=== PATIENT | male | born 1940 | race Caucasian/White ===

== ENCOUNTER 2019-05-20 17:04 | Emergency (ER) | payer OTHER ==
[~2019-05-20] VITALS: Ht 172.7 cm; Wt 63.5 kg
[2019-05-20] MEDS ORDERED: AMLO10 PO (18:00)
[2019-05-20] MEDS ORDERED: HYDCHL25 PO (18:01)
[2019-05-20] MEDS ORDERED: SIMV80 (18:01)
[2019-05-20] MEDS ORDERED: HYDR1TAB94 PO (19:34)
== END 2019-05-20 20:03 | disposition home or self-care (01) ==
LOC: ER 17:04
DX: S22.41XA Multiple fractures of ribs, right side, initial encounter for closed fracture (principal); S01.111A Laceration without foreign body of right eyelid and periocular area, initial encounter; I10 Essential (primary) hypertension; F17.210 Nicotine dependence, cigarettes, uncomplicated; V86.59XA Driver of other special all-terrain or other off-road motor vehicle injured in nontraffic accident, initial encounter
CPT/HCPCS: 12011; 70200; 71101; 90471; 90714; 99283-25; A9270

== ENCOUNTER 2020-12-05 19:06 | Emergency (ER) | payer OTHER ==
[~2020-12-05] VITALS: Ht 172.7 cm; Wt 63.5 kg
[~2020-12-05 19:06] MED LIST: AMLO10 PO; Cipro500 MG PO; HYDCHL25 PO; HYDR1TAB94 PO; SIMV80
[2020-12-05 20:13] LABS: BASOPHILS ABSOLUTE AUTO 0.06 K/mm3 (0.00-0.23); BASOPHILS PERCENT AUTO 0 % (0-2); EOSINOPHILS ABSOLUTE AUTO 0.09 K/mm3 (0.00-0.68); EOSINOPHILS PERCENT AUTO 1 % (0-6); Hematocrit 41.2 % (37.0-53.0); Hemoglobin 14.3 g/dL (13.5-17.5); IMMATURE GRAN ABSOLUTE AUTO 0.14 K/mm3 (0.00-0.10); IMMATURE GRAN PERCENT AUTO 1 % (0-1); LYMPHOCYTES ABSOLUTE AUTO 1.09 K/mm3 (0.84-5.20); LYMPHOCYTES PERCENT AUTO 6 % (21-46); MONOCYTES ABSOLUTE AUTO 1.53 K/mm3 (0.16-1.47); MONOCYTES PERCENT AUTO 8 % (4-13); Mean Corpuscular HGB 31.9 pg (26.0-34.0); Mean Corpuscular HGB Conc 34.7 g/dL (31.5-36.5); Mean Corpuscular Volume 92 fL (80-100); Mean Platelet Volume 10.1 fL (9.1-12.4); NEUTROPHILS ABSOLUTE AUTO 15.82 K/mm3 (1.96-9.15); NEUTROPHILS PERCENT AUTO 85 % (41-73); Platelet Count 203 K/mm3 (150-400); RDW Coefficient Variation 13.1 % (11.7-14.2); RDW Standard Deviation 43.8 fL (35.1-46.3); Red Blood Cell Count 4.48 M/mm3 (4.30-5.90); White Blood Cell Count 18.73 K/mm3 (4.00-11.30)
[2020-12-05 21:36] LABS: Troponin I <0.015 ng/mL (0.000-0.040)
[2020-12-05 21:37] LABS: Anion Gap 4 mmol/L (6-16); Blood Urea Nitrogen 16 mg/dL (8-24); Bun/Creatinine Ratio 17.5 (12.0-20.0); CO2, Blood 29 mmol/L (21-32); Calcium, Blood 10.5 mg/dL (8.5-10.1); Chloride, Blood 98 mmol/L (98-108); Creatinine, Blood 0.92 mg/dL (0.60-1.20); Glomerular Filtration Rate >60 (60-); Glucose, Blood 117 mg/dL (70-99); Sodium, Blood 131 mmol/L (136-145)
== END 2020-12-05 22:03 | disposition home or self-care (01) ==
LOC: ER 19:06
PROVIDERS: Student in an Organized Health Care Education/Training Program
DX: R55 Syncope and collapse (principal); I44.7 Left bundle-branch block, unspecified; I10 Essential (primary) hypertension; E78.5 Hyperlipidemia, unspecified; Z88.2 Allergy status to sulfonamides; F17.210 Nicotine dependence, cigarettes, uncomplicated
CPT/HCPCS: 80048; 84484; 85025; 93005; 93010; 99284-25

== ENCOUNTER 2023-01-18 13:49 | Inpatient (IN) | payer OTHER ==
[~2023-01-18] VITALS: Ht 172.7 cm; Wt 56.0 kg
[2023-01-18] MEDS ORDERED: Aspir 8181 MG PO (14:21)
[2023-01-18] MEDS ORDERED: VITAMIN D31000 UNI1 PO (14:22)
[2023-01-18] MEDS ORDERED: Tessalon200 MG PO (14:22)
[2023-01-18] MEDS ORDERED: CIPR250 PO ×2 (14:23→21:29)
[2023-01-18] MEDS ORDERED: ROSU10TA PO (14:24)
[2023-01-18] MEDS ORDERED: JARDIANCE10 MG PO (14:24)
[2023-01-18] MEDS ORDERED: ENTRESTO 24 MG1 EACH PO (14:24)
[2023-01-18] MEDS ORDERED: TAMS.4ER PO (14:25)
[2023-01-18] MEDS ORDERED: SENNA LAXATIVE8.6 MG PO (14:25)
[2023-01-18] MEDS ORDERED: SERT100 PO (14:25)
[2023-01-18 14:27] LABS: Hematocrit 35.5 % (37.0-53.0); Hemoglobin 12.3 g/dL (13.5-17.5); Mean Corpuscular HGB 30.8 pg (26.0-34.0); Mean Corpuscular HGB Conc 34.6 g/dL (31.5-36.5); Mean Corpuscular Volume 89 fL (80-100); Platelet Count 380 K/mm3 (150-400); RDW Coefficient Variation 13.1 % (11.7-14.2); White Blood Cell Count 28.31 K/mm3 (4.00-11.30)
[2023-01-18 14:41] LABS: Albumin, Blood 1.9 g/dL (3.4-5.0); Albumin/Globulin Ratio 0.5 (0.8-1.8); Bilirubin, Total 0.5 mg/dL (0.1-1.0); Bun/Creatinine Ratio 29.2 (12.0-20.0); Calcium, Blood 10.8 mg/dL (8.5-10.1); Creatinine, Blood 0.86 mg/dL (0.60-1.20); Globulin, Blood 4.2 g/dL (2.2-4.0); Potassium, Blood 3.6 mmol/L (3.5-5.5); Total Protein, Blood 6.1 g/dL (6.4-8.2)
[2023-01-18 14:57] LABS: International Normalized Ratio 1.14; Prothrombin Time Results 11.9 Sec (9.7-11.5)
[2023-01-18 15:10] LABS: BAND PERCENT MAN 29 % (0-8); BASOPHILS PERCENT MAN 0 % (0-2); EOSINOPHILS PERCENT MAN 0 % (0-6); LYMPHOCYTES ABSOLUTE MAN 0.84 K/mm3 (0.84-5.20); LYMPHOCYTES PERCENT MAN 3 % (21-46); MONOCYTES ABSOLUTE MAN 1.41 K/mm3 (0.16-1.47); MONOCYTES PERCENT MAN 5 % (4-13); NEUTROPHILS ABSOLUTE MAN 26.04 K/mm3 (1.96-9.15); SEG NEUTROPHILS PERCENT MAN 63 % (41-73); TOTAL CELLS COUNTED 100
[2023-01-18 18:36] VITALS: BP 124/70
[2023-01-18 19:11] VITALS: BP 120/84
[2023-01-18] MEDS ORDERED: ALBU90OI INH (21:03)
[2023-01-18] MEDS ORDERED: DEXTROMETHORPHAN-GUA PO (21:31)
[2023-01-19 04:27] VITALS: BP 138/73
[2023-01-19 04:33] LABS: BASOPHILS ABSOLUTE AUTO 0.05 K/mm3 (0.00-0.23); BASOPHILS PERCENT AUTO 0 % (0-2); EOSINOPHILS PERCENT AUTO 0 % (0-6); Hematocrit 33.3 % (37.0-53.0); Hemoglobin 11.4 g/dL (13.5-17.5); IMMATURE GRAN ABSOLUTE AUTO 0.19 K/mm3 (0.00-0.10); IMMATURE GRAN PERCENT AUTO 1 % (0-1); LYMPHOCYTES ABSOLUTE AUTO 1.13 K/mm3 (0.84-5.20); LYMPHOCYTES PERCENT AUTO 5 % (21-46); MONOCYTES PERCENT AUTO 8 % (4-13); Mean Corpuscular HGB 30.6 pg (26.0-34.0); Mean Corpuscular HGB Conc 34.2 g/dL (31.5-36.5); Mean Corpuscular Volume 90 fL (80-100); Mean Platelet Volume 9.9 fL (9.1-12.4); NEUTROPHILS ABSOLUTE AUTO 21.31 K/mm3 (1.96-9.15); NEUTROPHILS PERCENT AUTO 86 % (41-73); Platelet Count 337 K/mm3 (150-400); RDW Coefficient Variation 13.2 % (11.7-14.2); RDW Standard Deviation 43.7 fL (35.1-46.3); Red Blood Cell Count 3.72 M/mm3 (4.30-5.90); White Blood Cell Count 24.78 K/mm3 (4.00-11.30)
[2023-01-19 04:34] LABS: Base Excess Venous 3.7 mmol/L; Bicarbonate Venous 27.6 mmol/L (24.0-30.0); PCO2 Venous 36.7 mmHg (38-42); pH Blood Venous 7.48 (7.34-7.37)
[2023-01-19 04:56] LABS: Albumin, Blood 1.8 g/dL (3.4-5.0); Anion Gap 5 mmol/L (6-16); Blood Urea Nitrogen 26 mg/dL (8-24); Bun/Creatinine Ratio 29.4 (12.0-20.0); CO2, Blood 27 mmol/L (21-32); Calcium, Blood 10.8 mg/dL (8.5-10.1); Chloride, Blood 102 mmol/L (98-108); Creatinine, Blood 0.88 mg/dL (0.60-1.20); Glomerular Filtration Rate 86 (60-); Glucose, Blood 107 mg/dL (70-99); Phosphorus, Blood 2.6 mg/dL (2.5-4.9); Potassium, Blood 3.4 mmol/L (3.5-5.5); Sodium, Blood 134 mmol/L (136-145)
[2023-01-19 07:20] VITALS: BP 131/73
[2023-01-19 15:40] VITALS: BP 133/81
[2023-01-19 19:46] VITALS: BP 109/78
[2023-01-20 02:38] VITALS: BP 152/89
[2023-01-20 04:52] LABS: Hematocrit 36.1 % (37.0-53.0); Hemoglobin 12.1 g/dL (13.5-17.5); Mean Corpuscular HGB 30.3 pg (26.0-34.0); Mean Corpuscular HGB Conc 33.5 g/dL (31.5-36.5); Mean Corpuscular Volume 90 fL (80-100); Platelet Count 376 K/mm3 (150-400); RDW Coefficient Variation 13.3 % (11.7-14.2); RDW Standard Deviation 44.5 fL (35.1-46.3); White Blood Cell Count 23.03 K/mm3 (4.00-11.30)
[2023-01-20 05:12] LABS: Bun/Creatinine Ratio 32.9 (12.0-20.0); Calcium, Blood 10.9 mg/dL (8.5-10.1); Creatinine, Blood 0.79 mg/dL (0.60-1.20)
[2023-01-20 07:38] VITALS: BP 142/79
[2023-01-20 14:46] LABS: Automated BF RBC Count 0.011 M/mm3 (0-0); Automated BF WBC Count 4.037 K/mm3 (0-999)
[2023-01-20 14:52] LABS: Body Fluid WBC Count 4037 /mm3 (0-999); RBC Count, Body Fluid 11000 /mm3 (0-0)
[2023-01-20 14:53] LABS: Protein, Body Fluid 4.2 g/dL
[2023-01-20 14:56] LABS: Lactate Dehydrogenase, Body Fl 907 U/L
[2023-01-20 15:00] VITALS: BP 131/79
[2023-01-20 16:10] LABS: Total Cell Count, Body Fluid 100
[2023-01-20 16:11] LABS: Appearance, Body Fluid Cloudy (Clear); Color, Body Fluid Amber (None-Yellow)
[2023-01-20 19:46] VITALS: BP 149/73
[2023-01-21 02:50] VITALS: BP 149/120
[2023-01-21 02:53] VITALS: BP 149/89
[2023-01-21 05:06] LABS: BASOPHILS ABSOLUTE AUTO 0.05 K/mm3 (0.00-0.23); BASOPHILS PERCENT AUTO 0 % (0-2); EOSINOPHILS ABSOLUTE AUTO 0.17 K/mm3 (0.00-0.68); EOSINOPHILS PERCENT AUTO 1 % (0-6); Hematocrit 34.4 % (37.0-53.0); Hemoglobin 11.5 g/dL (13.5-17.5); IMMATURE GRAN ABSOLUTE AUTO 0.19 K/mm3 (0.00-0.10); IMMATURE GRAN PERCENT AUTO 1 % (0-1); LYMPHOCYTES ABSOLUTE AUTO 1.06 K/mm3 (0.84-5.20); LYMPHOCYTES PERCENT AUTO 4 % (21-46); MONOCYTES ABSOLUTE AUTO 1.55 K/mm3 (0.16-1.47); MONOCYTES PERCENT AUTO 6 % (4-13); Mean Corpuscular HGB 30.3 pg (26.0-34.0); Mean Corpuscular HGB Conc 33.4 g/dL (31.5-36.5); Mean Corpuscular Volume 91 fL (80-100); Mean Platelet Volume 9.9 fL (9.1-12.4); NEUTROPHILS ABSOLUTE AUTO 22.59 K/mm3 (1.96-9.15); NEUTROPHILS PERCENT AUTO 88 % (41-73); Platelet Count 371 K/mm3 (150-400); RDW Coefficient Variation 13.2 % (11.7-14.2); RDW Standard Deviation 44.7 fL (35.1-46.3); Red Blood Cell Count 3.79 M/mm3 (4.30-5.90); White Blood Cell Count 25.61 K/mm3 (4.00-11.30)
[2023-01-21 05:21] LABS: Albumin, Blood 1.7 g/dL (3.4-5.0); Anion Gap 6 mmol/L (6-16); Blood Urea Nitrogen 27 mg/dL (8-24); Bun/Creatinine Ratio 35.5 (12.0-20.0); CO2, Blood 26 mmol/L (21-32); Calcium, Blood 10.6 mg/dL (8.5-10.1); Chloride, Blood 100 mmol/L (98-108); Creatinine, Blood 0.76 mg/dL (0.60-1.20); Glomerular Filtration Rate 90 (60-); Glucose, Blood 122 mg/dL (70-99); Phosphorus, Blood 2.2 mg/dL (2.5-4.9); Potassium, Blood 3.6 mmol/L (3.5-5.5); Sodium, Blood 132 mmol/L (136-145)
[2023-01-21 05:24] VITALS: BP 109/96
[2023-01-21 07:55] VITALS: BP 116/65
[2023-01-21 16:22] VITALS: BP 121/77
[2023-01-21 19:40] VITALS: BP 135/74
[2023-01-22 04:34] VITALS: BP 178/71
[2023-01-22 06:54] LABS: BASOPHILS ABSOLUTE AUTO 0.04 K/mm3 (0.00-0.23); BASOPHILS PERCENT AUTO 0 % (0-2); EOSINOPHILS ABSOLUTE AUTO 0.18 K/mm3 (0.00-0.68); EOSINOPHILS PERCENT AUTO 1 % (0-6); Hematocrit 33.2 % (37.0-53.0); Hemoglobin 11.3 g/dL (13.5-17.5); IMMATURE GRAN ABSOLUTE AUTO 0.14 K/mm3 (0.00-0.10); IMMATURE GRAN PERCENT AUTO 1 % (0-1); LYMPHOCYTES PERCENT AUTO 6 % (21-46); MONOCYTES ABSOLUTE AUTO 1.85 K/mm3 (0.16-1.47); MONOCYTES PERCENT AUTO 10 % (4-13); Mean Corpuscular HGB 30.9 pg (26.0-34.0); Mean Corpuscular Volume 91 fL (80-100); NEUTROPHILS ABSOLUTE AUTO 15.38 K/mm3 (1.96-9.15); NEUTROPHILS PERCENT AUTO 82 % (41-73); Platelet Count 393 K/mm3 (150-400); RDW Coefficient Variation 13.3 % (11.7-14.2); RDW Standard Deviation 44.5 fL (35.1-46.3); Red Blood Cell Count 3.66 M/mm3 (4.30-5.90); White Blood Cell Count 18.69 K/mm3 (4.00-11.30)
[2023-01-22 07:10] LABS: Bun/Creatinine Ratio 27.8 (12.0-20.0); Calcium, Blood 10.6 mg/dL (8.5-10.1); Creatinine, Blood 0.76 mg/dL (0.60-1.20)
[2023-01-22 07:27] VITALS: BP 128/76
[2023-01-22 14:44] VITALS: BP 153/79
[2023-01-23 03:19] VITALS: BP 141/86
[2023-01-23 05:29] LABS: BASOPHILS ABSOLUTE AUTO 0.03 K/mm3 (0.00-0.23); BASOPHILS PERCENT AUTO 0 % (0-2); EOSINOPHILS PERCENT AUTO 1 % (0-6); IMMATURE GRAN ABSOLUTE AUTO 0.17 K/mm3 (0.00-0.10); IMMATURE GRAN PERCENT AUTO 1 % (0-1); LYMPHOCYTES ABSOLUTE AUTO 1.11 K/mm3 (0.84-5.20); LYMPHOCYTES PERCENT AUTO 6 % (21-46); MONOCYTES ABSOLUTE AUTO 1.89 K/mm3 (0.16-1.47); MONOCYTES PERCENT AUTO 10 % (4-13); Mean Corpuscular HGB 30.7 pg (26.0-34.0); Mean Corpuscular HGB Conc 33.3 g/dL (31.5-36.5); Mean Corpuscular Volume 92 fL (80-100); Mean Platelet Volume 9.8 fL (9.1-12.4); NEUTROPHILS ABSOLUTE AUTO 15.95 K/mm3 (1.96-9.15); NEUTROPHILS PERCENT AUTO 82 % (41-73); Platelet Count 399 K/mm3 (150-400); RDW Coefficient Variation 13.5 % (11.7-14.2); RDW Standard Deviation 45.8 fL (35.1-46.3); Red Blood Cell Count 3.58 M/mm3 (4.30-5.90); White Blood Cell Count 19.35 K/mm3 (4.00-11.30)
[2023-01-23 07:17] VITALS: BP 158/77
[2023-01-23 15:06] VITALS: BP 135/81
[2023-01-23 17:57] LABS: Influenza A, PCR NEGATIVE (NEGATIVE); Influenza B, PCR NEGATIVE (NEGATIVE); Resp Syncytial Virus, PCR NEGATIVE (NEGATIVE); SARS-Cov-2 (COVID-19) PCR, MMC NEGATIVE (NEGATIVE)
[2023-01-23 20:07] VITALS: BP 150/86
[2023-01-24 04:17] VITALS: BP 170/104
[2023-01-24 05:42] VITALS: BP 163/103
[2023-01-24 06:22] VITALS: BP 146/87
[2023-01-24 07:41] VITALS: BP 131/71
[2023-01-24 15:46] VITALS: BP 152/85
[2023-01-24 19:11] VITALS: BP 142/75
[2023-01-25 04:40] VITALS: BP 128/80
[2023-01-25 07:36] VITALS: BP 144/84
[2023-01-25] MEDS ORDERED: ACET500 PO (11:10)
[2023-01-25] MEDS ORDERED: GUAI600T33 PO (11:11)
[2023-01-25] MEDS ORDERED: AMOCLA875 PO (11:11)
[2023-01-25] MEDS ORDERED: HYDR1TAB94 PO (11:12)
[2023-01-25] MEDS ORDERED: [UNRECOGNIZED DRUG - OTHER] MC (11:13)
[2023-01-25] MEDS ORDERED: LORA.5 PO (11:14)
[2023-01-25] MEDS ORDERED: LACT PO (11:18)
[2023-01-25] MEDS ORDERED: MIRALAX17 GM PO (11:18)
== END 2023-01-25 11:58 | disposition hospice, home (50) | DRG 193 ==
LOC: ER 13:49 → MEDS 16:07
PROVIDERS: Emergency Medicine; Internal Medicine; ADMIT Internal Medicine
PROC: 0W9B30Z Drainage of Left Pleural Cavity with Drainage Device, Percutaneous Approach (ICD-10-PCS; principal; 2023-01-19)
DX: J18.9 Pneumonia, unspecified organism (principal); J96.01 Acute respiratory failure with hypoxia; C34.90 Malignant neoplasm of unspecified part of unspecified bronchus or lung; E44.0 Moderate protein-calorie malnutrition; J90 Pleural effusion, not elsewhere classified; Z68.1 Body mass index [BMI] 19.9 or less, adult; Z51.5 Encounter for palliative care; Z66 Do not resuscitate; Z20.822 Contact with and (suspected) exposure to COVID-19; I10 Essential (primary) hypertension; R91.8 Other nonspecific abnormal finding of lung field; G31.84 Mild cognitive impairment of uncertain or unknown etiology; E87.6 Hypokalemia; K59.00 Constipation, unspecified; E83.39 Other disorders of phosphorus metabolism; E83.52 Hypercalcemia; R63.4 Abnormal weight loss; N40.0 Benign prostatic hyperplasia without lower urinary tract symptoms; E78.5 Hyperlipidemia, unspecified; F17.210 Nicotine dependence, cigarettes, uncomplicated; Z88.2 Allergy status to sulfonamides; Z88.8 Allergy status to other drugs, medicaments and biological substances; Z79.2 Long term (current) use of antibiotics; Z79.82 Long term (current) use of aspirin; Z79.899 Other long term (current) drug therapy
CPT/HCPCS: 0241U; 32555; 36415; 71045; 71046; 71250; 80048; 80053; 80069; 82803; 83615; 84145; 84157; 84484; 85025; 85027; 85610; 85730; 87070; 87205; 88108; 88305; 88341; 88342; 89051; 93005; 93010; 94640; 94664; 94760; 96374; 97110; 97116; 97129; 97162; 97166; 97530; 97535; 99285-25; A9270; C1751; J0295; J0456; J1650; J7050